=== PATIENT | female | born 1995 | race Two or more races ===

== ENCOUNTER 2016-12-02 22:07 | Emergency (ER) | payer MEDICAID ==
[~2016-12-02] VITALS: Ht 154.9 cm; Wt 51.7 kg
[2016-12-02 22:23] VITALS: BP 137/78
--- NOTE | 2016-12-02 22:51 | NUR ---
DR ZUNIGA AT BEDSIDE FOR EVAL.
== END 2016-12-02 22:57 | disposition home or self-care (01) ==
LOC: ER 22:12
DX: J32.9 Chronic sinusitis, unspecified (principal); M79.1 Myalgia
CPT/HCPCS: 99283; A4606; Z7610

== ENCOUNTER 2018-05-08 21:01 | Emergency (ER) | payer MEDICAID ==
[~2018-05-08] VITALS: Ht 154.9 cm; Wt 65.3 kg
[2018-05-08 21:07] VITALS: BP 141/89
== END 2018-05-08 22:20 | disposition home or self-care (01) ==
LOC: ER 21:04
DX: J39.2 Other diseases of pharynx (principal)
CPT/HCPCS: 99281; A4606; Z7610; Z7502